=== PATIENT | male | born 1960 | race Caucasian/White ===

== ENCOUNTER → 2016-06-15 | Outpatient (CLI) | payer MEDICARE, SELFPAY ==
[~2016-06-15] MED LIST: CARDIZEM CD180 MG PO; CYMBALTA 30 MG30 MG PO; DIOVAN HCT 3201 EACH PO; ELAVIL 50 MG TA50 MG PO; ESOMEPRAZOLE MA40 MG PO; IPRAT-ALBUT 0.5-3 ML INH; LABETALOL HCL100 MG PO; LEVAQUIN500 MG PO; LEVAQUIN750 MG PO; NEURONTIN 300300 MG PO; PROAIR HFA8.5 GM INH; PROVENTIL HFA 61 INH INH; ROBAXIN 750 MG750 MG PO; SPIRIVA HANDIH18 MCG INH; SUBOXONE 8 MG-1 EACH PO
== END ==
LOC: RAD 06-04 11:30
DX: R10.33 Periumbilical pain (principal); R93.5 Abnormal findings on diagnostic imaging of other abdominal regions, including retroperitoneum
CPT/HCPCS: 74250

== ENCOUNTER 2016-06-26 14:01 | Inpatient (IN) | payer MEDICARE ==
[~2016-06-26] VITALS: Ht 188 cm; Wt 81.6 kg
[~2016-06-26 14:01] MED LIST changes: -CYMBALTA 30 MG30 MG PO; -IPRAT-ALBUT 0.5-3 ML INH; -LEVAQUIN500 MG PO; -LEVAQUIN750 MG PO; -PROAIR HFA8.5 GM INH; -SPIRIVA HANDIH18 MCG INH
[2016-06-26 15:43] LABS: HEMOGLOBIN 14.3 gm/dl (14.0-17.5); RED BLOOD COUNT 4.44 M/UL (4.20-5.50); WHITE BLOOD COUNT 6.9 K/UL (4.5-11.0)
[2016-06-26 15:55] LABS: BUN/CREATININE RATIO 13 (0-10)
[2016-06-27 06:03] LABS: HEMOGLOBIN 14.6 gm/dl (14.0-17.5); RED BLOOD COUNT 4.55 M/UL (4.20-5.50)
[2016-06-27 06:20] LABS: BUN/CREATININE RATIO 20 (0-10)
[2016-06-28 04:09] LABS: HEMOGLOBIN 13.7 gm/dl (14.0-17.5); RED BLOOD COUNT 4.28 M/UL (4.20-5.50); WHITE BLOOD COUNT 13.6 K/UL (4.5-11.0)
[2016-06-28 04:31] LABS: BUN/CREATININE RATIO 23 (0-10)
[2016-06-28] MEDS ORDERED: LEVAQUIN500 MG PO (10:14)
[2016-06-28] MEDS ORDERED: SPIRIVA HANDIH18 MCG INH (10:16)
== END 2016-06-28 12:17 | disposition home or self-care (01) | DRG 190 ==
LOC: ER1 14:01 → M/S 20:15 → ZEROF 20:15 → M/S 06-27 00:07
PROVIDERS: Emergency Medicine; Internal Medicine; ADMIT Family Medicine
DX: J44.0 Chronic obstructive pulmonary disease with (acute) lower respiratory infection (principal); J18.9 Pneumonia, unspecified organism; D72.829 Elevated white blood cell count, unspecified; I71.2 Thoracic aortic aneurysm, without rupture; I25.10 Atherosclerotic heart disease of native coronary artery without angina pectoris; F17.210 Nicotine dependence, cigarettes, uncomplicated; G62.9 Polyneuropathy, unspecified; I10 Essential (primary) hypertension; G89.4 Chronic pain syndrome; G47.30 Sleep apnea, unspecified; M50.30 Other cervical disc degeneration, unspecified cervical region; Z98.890 Other specified postprocedural states; Z95.2 Presence of prosthetic heart valve; R42 Dizziness and giddiness
CPT/HCPCS: 36415; 36600; 71010; 71020; 80048; 80053; 82550; 82553; 82803; 83874; 83880; 84484; 85025; 85027; 85379; 87040; 87070; 87077; 87186; 87205; 93005; 94640; 94664; 96361; 96365; 96375; 99285; G0378; J1956; J2930; J7050; Q9963

== ENCOUNTER 2016-06-30 17:14 | Emergency (ER) | payer MEDICARE ==
[~2016-06-30 17:14] MED LIST changes: +LEVAQUIN500 MG PO; +SPIRIVA HANDIH18 MCG INH
== END 2016-06-30 20:05 | disposition left against medical advice (07) ==
LOC: ER1 17:14
DX: Z53.21 Procedure and treatment not carried out due to patient leaving prior to being seen by health care provider (principal)

== ENCOUNTER 2016-08-08 22:57 | Emergency (ER) | payer MEDICARE ==
[2016-08-09 02:19] LABS: RED BLOOD COUNT 4.67 M/UL (4.20-5.50); WHITE BLOOD COUNT 11.6 K/UL (4.5-11.0)
[2016-08-09 02:25] LABS: BUN/CREATININE RATIO 10 (0-10)
== END 2016-08-09 11:30 | disposition short-term general hospital (02) ==
LOC: ER1 22:57
PROVIDERS: Emergency Medicine; Family Medicine
DX: J96.00 Acute respiratory failure, unspecified whether with hypoxia or hypercapnia (principal); F13.10 Sedative, hypnotic or anxiolytic abuse, uncomplicated; I10 Essential (primary) hypertension
CPT/HCPCS: 31500; 36415; 36556; 36600; 51702; 70450; 70486; 71010; 72125; 80048; 80053; 80307; 81001; 82140; 82550; 82553; 82803; 83605; 83690; 83874; 83880; 84439; 84443; 84484; 85025; 85379; 85610; 85730; 87040; 87086; 93005; 94002; 96374; 96375; 99285; A4628; G0480; J0696; J2060; J2310; J3370; J7030; J7050

== ENCOUNTER 2016-08-30 19:13 | Inpatient (IN) | payer MEDICARE ==
[~2016-08-30] VITALS: Ht 190.5 cm; Wt 80.7 kg
[2016-08-30 20:04] LABS: HEMOGLOBIN 13.7 gm/dl (14.0-17.5); RED BLOOD COUNT 4.37 M/UL (4.20-5.50); WHITE BLOOD COUNT 8.5 K/UL (4.5-11.0)
[2016-08-30 20:30] LABS: BUN/CREATININE RATIO 18 (0-10)
[2016-08-31] MEDS ORDERED: PROAIR HFA8.5 GM INH (10:56)
[2016-08-31] MEDS ORDERED: ELAVIL 50 MG TA50 MG PO (10:57)
[2016-08-31] MEDS ORDERED: IPRAT-ALBUT 0.5-3 ML INH (11:14)
[2016-08-31] MEDS ORDERED: CYMBALTA 30 MG30 MG PO (17:59)
[2016-09-01 04:34] LABS: HEMOGLOBIN 13.7 gm/dl (14.0-17.5); RED BLOOD COUNT 4.34 M/UL (4.20-5.50); WHITE BLOOD COUNT 6.9 K/UL (4.5-11.0)
[2016-09-01 05:15] LABS: BUN/CREATININE RATIO 22 (0-10)
[2016-09-02 05:00] LABS: RED BLOOD COUNT 4.16 M/UL (4.20-5.50)
[2016-09-02 05:44] LABS: BUN/CREATININE RATIO 17 (0-10)
[2016-09-02] MEDS ORDERED: LEVAQUIN750 MG PO (14:04)
== END 2016-09-02 17:19 | disposition home or self-care (01) | DRG 190 ==
LOC: ER1 19:13 → ZEROF 08-31 00:15 → MED SURG 4 08-31 17:01
PROVIDERS: Family Medicine; ADMIT Family Medicine
DX: J44.0 Chronic obstructive pulmonary disease with (acute) lower respiratory infection (principal); J18.9 Pneumonia, unspecified organism; J96.01 Acute respiratory failure with hypoxia; J96.02 Acute respiratory failure with hypercapnia; G93.40 Encephalopathy, unspecified; N17.9 Acute kidney failure, unspecified; F11.20 Opioid dependence, uncomplicated; E86.0 Dehydration; G89.29 Other chronic pain; R07.89 Other chest pain; I25.10 Atherosclerotic heart disease of native coronary artery without angina pectoris; R06.81 Apnea, not elsewhere classified; F17.210 Nicotine dependence, cigarettes, uncomplicated; I10 Essential (primary) hypertension; G47.33 Obstructive sleep apnea (adult) (pediatric); Z87.01 Personal history of pneumonia (recurrent); Z79.899 Other long term (current) drug therapy; Z91.14 Patient's other noncompliance with medication regimen; I70.219 Atherosclerosis of native arteries of extremities with intermittent claudication, unspecified extremity; E86.9 Volume depletion, unspecified; Y95 Nosocomial condition
CPT/HCPCS: 36415; 36600; 70450; 71010; 71020; 71250; 71260; 80053; 80202; 80307; 81001; 82140; 82550; 82553; 82803; 83874; 84484; 85025; 85027; 87081; 93005; 93925; 94640; 94660; 94664; 96374; 96375; 99285; J1650; J1956; J2310; J3370; J7030; J7050; J7070; Q9962

== ENCOUNTER 2016-09-23 11:26 | Emergency (ER) | payer MEDICARE, SELFPAY ==
[~2016-09-23 11:26] MED LIST changes: +CYMBALTA 30 MG30 MG PO; +IPRAT-ALBUT 0.5-3 ML INH; +LEVAQUIN750 MG PO; +PROAIR HFA8.5 GM INH
[2016-09-23 13:50] LABS: HEMOGLOBIN 14.9 gm/dl (14.0-17.5); RED BLOOD COUNT 4.71 M/UL (4.20-5.50)
[2016-09-23 14:07] LABS: BUN/CREATININE RATIO 15 (0-10)
== END 2016-09-23 17:32 | disposition home or self-care (01) ==
LOC: ER1 11:26
PROVIDERS: Specialist/Technologist Athletic Trainer
DX: R07.2 Precordial pain (principal); Q25.1 Coarctation of aorta; J18.9 Pneumonia, unspecified organism; I11.9 Hypertensive heart disease without heart failure; F41.9 Anxiety disorder, unspecified; F17.200 Nicotine dependence, unspecified, uncomplicated; Z79.899 Other long term (current) drug therapy
CPT/HCPCS: 36415; 71250; 80053; 82550; 82553; 83874; 84439; 84443; 84484; 85025; 85610; 85730; 93005; 99285